=== PATIENT | female | born 1975 | race Hispanic/Latino ===

== ENCOUNTER → 2018-08-19 | Outpatient (CLI) | payer OTHER | LOC: LAB 14:24 | PROVIDERS: ATTEND Internal Medicine Gastroenterology | DX: R93.89 Abnormal findings on diagnostic imaging of other specified body structures (principal); I10 Essential (primary) hypertension; E66.01 Morbid (severe) obesity due to excess calories; Z71.3 Dietary counseling and surveillance | CPT/HCPCS: 36415; 85651; 86140 ==